=== PATIENT | female | born 1985 | race Caucasian/White ===

== ENCOUNTER 2016-12-14 08:02 | Day surgery (SDC) | payer BC ==
[~2016-12-14 08:02] MED LIST: Lactated Ringers 1,000 ML IV SCH
--- NOTE | 2016-12-14 08:34 | PCM.OPNOTE ---
- General Post-Op/Procedure Note Date of Surgery/Procedure: 12/14/16 Condition: Good Free Text/Narrative:: Diagnosis: Bilateral eustachian tube dysfunction Procedure: Bilateral Myringotomy with Tympanostomy tubes Surgeon : Citlaly Ingram MD Date of procedure: 12/14/2016 Indications : She presented to my office with ongoing symptoms of aural pressure , otalgia and imbalance especially with change of altitude. These were affecting her quality of life. A tympanogram was s/o eustachian tube dysfunction and after a detailed discussion of risks and benefits - she was consented for surgery today. Findings : Kyrie ME - dry Operation Details: An informed consent for the procedure was obtained. A time out was performed and the patient was brought back to the operating room and laid supine on the operating room table. Anesthesia was administered with a LMA. The left ear was addressed first. Cerumen was cleared from the external auditory canal. An anterior inferior myringotomy incision was made in the pars tensa. Findings are as described above. An Calderon tympanostomy tube was placed with an alligator forceps. Ciprodex ear drops were instilled. A cotton wool wall was placed in the misbah. The right ear was addressed. Cerumen was cleared from the external auditory canal. An anterior inferior myringotomy incision was made in the pars tensa. Findings are as described above. An Caledron tympanostomy tube was placed with an alligator forceps. Ciprodex ear drops were instilled. A cotton wool wall was placed in the misbah. Specimens: None IV fluids: 300 ml Blood products: nil Disposition: PACU for recovery Follow up: 1 week
--- NOTE | 2016-12-14 08:47 | PCM.PREANE ---
Preanesthetic Assessment - Anesthesia/Transfusion/Family Hx Anesthesia History: Prior Anesthesia Without Reaction Family History of Anesthesia Reaction: No Transfusion History: No Prior Transfusion(s) Intubation History: Unknown - Review of Systems General: No Symptoms Pulmonary: No Symptoms Cardiovascular: No Symptoms Gastrointestinal: No Symptoms Neurological: No Symptoms Other: Reports: None - Physical Assessment Height: 1.66 m Weight: 100.244 kg ASA Class: 2 Mental Status: Alert & Oriented x3 Airway Class: Mallampati = 2 Dentition: Reports: Normal Dentition, Implants (x1 upper left (back)) Thyro-Mental Finger Breadths: 3 Mouth Opening Finger Breadths: 2 (TMJ) ROM/Head Extension: Full Lungs: Clear to Auscultation, Normal Respiratory Effort Cardiovascular: Regular Rate, Regular Rhythm - Allergies Allergies/Adverse Reactions: Allergies Allergy/AdvReac Type Severity Reaction Status Date / Time prednisone Allergy Anaphylactic Verified 12/01/16 08:29 Shock - Blood Blood Available: No - Anesthesia Plan Pre-Op Medication Ordered: None - Acknowledgements Anesthesia Type Planned: General Anesthesia Pt an Appropriate Candidate for the Planned Anesthesia: Yes Alternatives and Risks of Anesthesia Discussed w Pt/Guardian: Yes Pt/Guardian Understands and Agrees with Anesthesia Plan: Yes PreAnesthesia Questionnaire HEENT History: Reports: Allergic Rhinitis Other HEENT History: eustachian tube dysfunction and imbalance, TMJ disorder Gastrointestinal History: Reports: GERD Genitourinary History: Reports: None DIRECTOR OF TECHNOLOGY History: Reports: Neurological History: Reports: Migraines Psychiatric History: Reports: Anxiety Endocrine/Metabolic History: Reports: Obesity/BMI 30+ Hematologic History: Reports: Anemia - Past Surgical History Head Surgeries/Procedures: Reports: None Female Surgical History: Reports: D&C - SUBSTANCE USE Smoking Status *Q: Current Some Day Smoker Recreational Drug Use History: No - HOME MEDS Home Medications: Home Meds Cetirizine [ZyrTEC] 10 mg PO DAILY PRN 12/01/16 [History] Fluticasone Propionate [Flonase Allergy Relief] 1 - 2 spray NASBOTH DAILY [History] - CURRENT (IN HOUSE) MEDS Current Meds: Current Medications Lactated Ringer's (Ringers, Lactated) 1,000 mls @ 125 mls/hr IV ASDIRECTED [facility]
[2016-12-14] MEDS ORDERED: EPINEPHrine 1 MG/ML SDV ONE (09:31)
[2016-12-14] MEDS ORDERED: Ciprofloxacin/Dexamethasone 0.3-0.1% Otic Susp 7.5 ML Bottle ONE (09:31)
[2016-12-14] MEDS ORDERED: Lidocaine 2% 5 ML SDV ONE (09:49)
[2016-12-14] MEDS ORDERED: Propofol 200 MG/20 ML SDV ONE (09:50)
[2016-12-14] MEDS ORDERED: Midazolam 1 MG/ML 2 ML SDV ONE (09:50)
[2016-12-14] MEDS ORDERED: fentaNYL 100 MCG/2 ML SDV ONE (09:50)
[2016-12-14] MEDS ORDERED: Ondansetron 4 MG/2 ML SDV ONE (09:50)
[2016-12-14] MEDS ORDERED: Ketorolac 30 MG/ML SDV ONE (09:50)
[2016-12-14] MEDS ORDERED: Acetaminophen 325 MG Tab PO PRN (10:47)
[2016-12-14] MEDS ORDERED: fentaNYL 100 MCG/2 ML SDV IVPUSH PRN (10:56)
--- NOTE | 2016-12-14 11:21 | PCM.POSTAN ---
POST ANESTHESIA ASSESSMENT - MENTAL STATUS Mental Status: Alert, Oriented - RESPIRATORY Respiratory Status: Respiratory Rate WNL, Airway Patent, O2 Saturation Stable - CARDIOVASCULAR CV Status: Pulse Rate WNL, Blood Pressure Stable - GASTROINTESTINAL GI Status: No Symptoms - PAIN Pain Score: 5 - POST OP HYDRATION Hydration Status: Adequate & Stable - OBSERVATIONS Free Text/Narrative:: no anesthesia problems
[2016-12-14 11:46] VITALS: BP 136/86
== END 2016-12-14 12:15 | disposition home or self-care (01) ==
LOC: MW.SDS 08:02
PROVIDERS: ATTEND Otolaryngology
DX: H69.83 Other specified disorders of Eustachian tube, bilateral (principal); M26.69 Other specified disorders of temporomandibular joint; F17.200 Nicotine dependence, unspecified, uncomplicated; Z88.8 Allergy status to other drugs, medicaments and biological substances; Z79.51 Long term (current) use of inhaled steroids; Z98.890 Other specified postprocedural states
CPT/HCPCS: 69436; A9270; J0171; J2250; J2405; J3010; 00170; J1885; J2704

== ENCOUNTER 2018-11-21 16:26 | Emergency (ER) | payer MEDICAID ==
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
[2018-11-21 17:52] LABS: BLOOD UREA NITROGEN,BUN 12 mg/dL (7.0-18.0); CARBON DIOXIDE,CO2 23.9 mmol/L (21.0-32.0); CHLORIDE,CL 105 mmol/L (98-107); GLUCOSE RANDOM 111 mg/dL (74-106); POTASSIUM,K 3.7 mmol/L (3.5-5.1); SODIUM,NA 139 mmol/L (136-145)
[2018-11-21 17:54] LABS: LIPASE 158 U/L (73-393)
[2018-11-21 18:05] LABS: ACETAMINOPHEN <2.0 ug/mL
--- NOTE | 2018-11-21 18:21 | CR ---
Indication: Confusion Technique: Chest 1 view Comparison: None Findings/Impression: Cardiovascular and mediastinum: Heart size and vasculature are normal in caliber and appearance. Mediastinum is within normal limits. Lungs and pleural space: Lungs are clear. No sign of infiltrate or mass. No sign of pleural effusion. No pneumothorax. Bones and soft tissues: No significant findings. Dictated by Gogo Hedrick MD @ Nov 21 2018 6:20PM Signed by Dr. Gogo Hedrick @ Nov 21 2018 6:20PM
--- NOTE | 2018-11-21 18:21 | CT ---
INDICATION: Confusion, foggy sensation, tingling in toes TECHNIQUE: CT head without contrast. COMPARISON: None FINDINGS: CSF spaces: Within normal limits for age. Brain parenchyma: The jane-white differentiation is normal. No sign of mass, hemorrhage, or midline shift. Skull base and calvarium: The visualized paranasal sinuses and mastoid air cells demonstrate no acute or significant findings. The visualized orbits are grossly unremarkable. No skull fractures. IMPRESSION: Unremarkable noncontrast head CT. Please note that all CT scans at this facility use dose modulation, iterative reconstruction, and/or weight-based dosing when appropriate to reduce radiation dose to as low as reasonably achievable. Dictated by Gogo Hedrick MD @ Nov 21 2018 6:16PM Signed by Dr. Gogo Hedrick @ Nov 21 2018 6:19PM
[2018-11-21 18:50] VITALS: BP 141/75; PULSE 78
== END 2018-11-21 18:50 | disposition home or self-care (01) ==
LOC: MW.ED 16:26
DX: R41.0 Disorientation, unspecified (principal); Z88.1 Allergy status to other antibiotic agents; Z88.8 Allergy status to other drugs, medicaments and biological substances
CPT/HCPCS: 36415; 70450; 70450-26; 71045; 71045-26; 80053; 80305-QW; 81003; 83690; 83735; 84443; 84484; 84703; 85025; 93005; 99284; 99284-25; G0480

== ENCOUNTER 2019-05-23 16:58 | Emergency (ER) | payer MEDICAID, OTHER ==
--- NOTE | 2019-05-23 17:09 | EDM.PDOC ---
ED HPI GENERAL MEDICAL PROBLEM - General Chief Complaint: Respiratory Problem Stated Complaint: COUGH,RESPIRATORY Time Seen by Provider: 05/23/19 17:00 Source of Information: Reports: Patient History Limitations: Reports: No Limitations - History of Present Illness INITIAL COMMENTS - FREE TEXT/NARRATIVE: HISTORY AND PHYSICAL: History of present illness: Patient is a 34-year-old female who presents to the emergency room with complaints of cough, body aches, sore throat and subjective fever. She states that initially her , then younger son had respiratory symptoms and states they were checked for flu and pneumonia - these were negative. Sunday she started to have more noticeable symptoms which prompted her to come to the ED. Has had some loose stools in the last 24 hours. Patient denies any headache, change in vision, syncope or near syncope. Denies any chest pain, back pain, neck pain or stiffness. Denies any abdominal pain, nausea, vomiting, constipation or dysuria. Denies any chance of . Patient has been eating and drinking appropriately. No recent travel, but states her travels and is around people who travel due to work. Patient is wearing mask and isolated in room #2; has her three children with her (whom appear healthy and active). Review of systems: As per history of present illness and below otherwise all systems reviewed and negative. Past medical history: As per history of present illness and as reviewed below otherwise noncontributory. Surgical history: As per history of present illness and as reviewed below otherwise noncontributory. Social history: See social history for further information Family history: As per history of present illness and as reviewed below otherwise noncontributory. Physical exam: General: Well developed and well-nourished 34-year-old female. Alert and oriented. Generally unwell appearing but nontoxic and in no acute distress. HEENT: Atraumatic, normocephalic, pupils equal and reactive bilaterally, negative for conjunctival pallor or scleral icterus, mucous membranes moist, TMs normal bilaterally, throat edematous without exudate or soft tissue swelling , neck supple, nontender, trachea midline. No drooling or trismus noted. No meningeal signs. No hot potato voice noted. Lungs: Slightly diminished with expiratory wheezing noted to the bilateral base , breath sounds equal bilaterally, chest nontender. Dry nonproductive cough noted. Heart: S1S2, regular rate and rhythm without overt murmur Abdomen: Soft, nondistended, nontender. Negative for masses or hepatosplenomegaly. Negative for costovertebral tenderness. Skin: Intact, warm, dry. No lesions or rashes noted. Extremities: Atraumatic, moves all extremities per self without difficulty or deficits, negative for cords or calf pain. Neurovascular unremarkable. Neuro: Awake, alert, oriented. Cranial nerves II through XII unremarkable. Cerebellum unremarkable. Motor and sensory unremarkable throughout. Exam nonfocal. Notes: Patient appears to have some type of viral illness. She is tested negative for influenza and strep screening. Her chest x-ray is unremarkable. She does have a low-grade temp, tachycardic and slightly diminished/expiratory wheezing noted to her lung posey. She states there was concern approximately a month ago of exposure to coronavirus. She states her travels for work and had been exposed to a man who was in [facility] and being tested for COVID-19. She believes that he was negative for this. Since that time she states her initially was ill, then her kids and now her. There are guidelines that are changing about testing for COVID-19; I talked with her about testing for this. She would like to move forward with testing. Patient declines wanting an IV and fluids at this time for her tachycardia. She states she would like to be discharged home as she is the main caregiver of 3 children that are here with her now. I did offer to prescribe her nebulizer treatment, she has machine at home. We did talk about self quarantine until she has results back. Encouraged her to drink plenty of fluids and supportive care measures were reviewed and discussed. Signs and symptoms that would prompt her to return to the emergency room were reviewed and discussed. Voices understanding and is agreeable to plan of care. Denies any further questions or concerns at this time. Diagnostics: Influenza, strep, chest x-ray Therapeutics: DuoNeb Prescription: Duo Bret (#1 box) Impression: Viral Upper Respiratory Illness Plan: 1. Standard contact precautions (covering mouth while coughing, avoid sharing drinking cups and eating utensils). Please make sure you're doing good handwashing as this is contagious. 2. We did swab for COVID-19. This swab is sent to [facility] for analysis. Please stay home until you hear results. The state will contact you with results. For further questions related to the COVID-19, the public can call the [facility] hotline at from 7am - 7pm Sunday - Sunday. 3. Supportive care measures such as Tylenol and/or ibuprofen for pain and fever management. Encourage small frequent sips of fluids to prevent dehydration. If your symptoms worsen; please return to the ED. 4. Follow-up with your fire investigator in the next 1-2 days. Return to the ED as needed and as discussed. Definitive disposition and diagnosis as appropriate pending reevaluation and review of above. throat Pain Score (Numeric/FACES): 5 body aches Pain Score (Numeric/FACES): 5 - Related Data Allergies Allergy/AdvReac Type Severity Reaction Status Date / Time doxycycline Allergy Stomach Verified 11/21/18 16:32 Upset prednisone Allergy Anaphylactic Verified 11/21/18 16:32 Shock Home Meds: Home Meds Albuterol/Ipratropium [DuoNeb 3.0-0.5 MG/3 ML] 3 ml INH Q4HR PRN #1 box [Rx] Past Medical History - Past Health History Medical/Surgical History: Denies Medical/Surgical History HEENT History: Reports: Allergic Rhinitis Other HEENT History: eustachian tube dysfunction and imbalance, TMJ disorder Cardiovascular History: Reports: None Respiratory History: Reports: None Gastrointestinal History: Reports: GERD Genitourinary History: Reports: None 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: Musculoskeletal History: Reports: None Neurological History: Reports: Migraines Psychiatric History: Reports: Anxiety Endocrine/Metabolic History: Reports: Obesity/BMI 30+ Hematologic History: Reports: Anemia Immunologic History: Reports: None Oncologic (Cancer) History: Reports: None Dermatologic History: Reports: None - Infectious Disease History Infectious Disease History: Reports: Herpes - Past Surgical History Head Surgeries/Procedures: Reports: None Female Surgical History: Reports: D&C Social & Family History - Family History Family Medical History: Noncontributory - Caffeine Use Caffeine Use: Reports: Coffee, Soda ED ROS GENERAL - Review of Systems Review Of Systems: Comprehensive ROS is negative, except as noted in HPI. ED EXAM, GENERAL - Physical Exam Exam: See Below (See dictation) Course - Vital Signs Last Recorded V/S: Last Vital Signs Temp 99.6 F 05/23/19 17:55 Pulse 111 H 05/23/19 17:55 Resp 19 05/23/19 17:55 BP 139/77 05/23/19 17:55 Pulse Ox 97 05/23/19 17:55 - Orders/Labs/Meds Orders: Active Orders 24 hr Category Date Time Status RT Aerosol Therapy [RC] ASDIRECTED Care 05/23/19 17:15 Active CORONAVIRUS (COVID-19) PCR [MREF] Stat Lab 05/23/19 18:36 Received CULTURE STREP A CONFIRMATION [RM] Stat Lab 05/23/19 17:15 Results STREP SCRN A RAPID W CULT CONF [RM] Stat Lab 05/23/19 17:15 Results Isolation [COMM] Routine Oth 05/23/19 17:11 Active Meds: Medications Discontinued Medications Generic Name Dose Route Start Last Admin Trade Name Freq PRN Reason Stop Dose Admin Albuterol/Ipratropium 3 ml 05/23/19 17:15 05/23/19 17:24 Duoneb 3.0-0.5 Mg/3 Ml NEB 05/23/19 17:16 3 ml ONETIME ONE Administration Departure - Departure Time of Disposition: 18:23 Disposition: Home, Self-Care 01 Clinical Impression: Viral URI - Discharge Information Prescriptions: Albuterol/Ipratropium [DuoNeb 3.0-0.5 MG/3 ML] 3 ml INH Q4HR PRN #1 box PRN Reason: Dyspnea Instructions: Upper Respiratory Infection, Adult, [id number] Referrals: Jing Paula MD [Primary Care Provider] - Forms: ED Department Discharge Additional Instructions: The following information is given to patients seen in the emergency department who are being discharged to home. This information is to outline your options for follow-up care. We provide all patients seen in our emergency department with a follow-up referral. The need for follow-up, as well as the timing and circumstances, are variable depending upon the specifics of your emergency department visit. If you don't have a primary care physician on staff, we will provide you with a referral. We always advise you to contact your personal physician following an emergency department visit to inform them of the circumstance of the visit and for follow-up with them and/or the need for any referrals to a consulting specialist. The emergency department will also refer you to a specialist when appropriate. This referral assures that you have the opportunity for follow-up care with a specialist. All of these measure are taken in an effort to provide you with optimal care, which includes your follow-up. Under all circumstances we always encourage you to contact your private physician who remains a resource for coordinating your care. When calling for follow-up care, please make the office aware that this follow-up is from your recent emergency room visit. If for any reason you are refused follow-up, please contact the [facility] Emergency Department at and asked to speak to the emergency department charge nurse. [facility] [address] [place] [address] [facility] [address] [place] [phone] 1. Standard contact precautions (covering mouth while coughing, avoid sharing drinking cups and eating utensils). Please make sure you're doing good handwashing as this is contagious. 2. We did swab for COVID-19. This swab is sent to the [facility] for analysis. Please stay home until you hear results. The [facility] will contact you with results. For further questions related to the COVID-19, the public can call the [facility] hotline at from 7am - 7pm Sunday - Sunday. 3. Supportive care measures such as Tylenol and/or ibuprofen for pain and fever management. Encourage small frequent sips of fluids to prevent dehydration. If your symptoms worsen; please return to the ED. 4. Follow-up with your fire investigator in the next 1-2 days. Return to the ED as needed and as discussed. Sepsis Event Note - Focused Exam Vital Signs: Vital Signs Temp Temp Pulse Resp BP Pulse Ox 05/23/19 17:55 99.6 F 111 H 19 139/77 97 05/23/19 17:04 96.5 F L 107 H 22 H 131/94 H 99 Date Exam was Performed: 05/23/19 Time Exam was Performed: 18:56 - My Orders Last 24 Hours: My Active Orders 05/23/19 17:11 Isolation [COMM] Routine 05/23/19 17:15 RT Aerosol Therapy [RC] ASDIRECTED CULTURE STREP A CONFIRMATION [RM] Stat STREP SCRN A RAPID W CULT CONF [RM] Stat 05/23/19 18:36 CORONAVIRUS (COVID-19) PCR [MREF] Stat - Assessment/Plan Last 24 Hours: My Active Orders 05/23/19 17:11 Isolation [COMM] Routine 05/23/19 17:15 RT Aerosol Therapy [RC] ASDIRECTED CULTURE STREP A CONFIRMATION [RM] Stat STREP SCRN A RAPID W CULT CONF [RM] Stat 05/23/19 18:36 CORONAVIRUS (COVID-19) PCR [MREF] Stat
[2019-05-23] MEDS ORDERED: Albuterol/Ipratropium 3.0-0.5 MG/3 ML Neb Soln NEB ONE (17:15)
--- NOTE | 2019-05-23 17:59 | CR ---
INDICATION: Shortness of breath, cough TECHNIQUE: Chest radiograph 2 views COMPARISON: None FINDINGS: Mediastinum: The mediastinum is normal in appearance. The heart silhouette is normal in size and morphology. Lung: Both lungs are unremarkable in appearance. No sign of pleural effusion seen. No pneumothorax is identified. Bone and Soft tissue: Unremarkable for age. IMPRESSION: 1. No acute cardiopulmonary disease is seen. Dictated by: Noé Kent MD @ 05/23/2019 17:56:40 (Electronically Signed)
[2019-05-23 19:04] VITALS: BP 114/60; PULSE 109
== END 2019-05-23 18:59 | disposition home or self-care (01) ==
LOC: MW.ED 16:58
DX: J06.9 Acute upper respiratory infection, unspecified (principal); Z88.2 Allergy status to sulfonamides; Z88.8 Allergy status to other drugs, medicaments and biological substances; E66.9 Obesity, unspecified; Z68.34 Body mass index [BMI] 34.0-34.9, adult
CPT/HCPCS: 71046; 71046-26; 87081; 87804; 87880-QW; 94640; 99283; 99284-25; J7620-GY; U0001; U0002

== ENCOUNTER 2019-11-24 15:49 | Emergency (ER) | payer MEDICAID, OTHER ==
--- NOTE | 2019-11-24 16:09 | EDM.PDOC ---
ED HPI GENERAL MEDICAL PROBLEM - General Chief Complaint: General Stated Complaint: COVID POSITIVE Time Seen by Provider: 11/24/19 15:56 Source of Information: Reports: Patient History Limitations: Reports: No Limitations - History of Present Illness INITIAL COMMENTS - FREE TEXT/NARRATIVE: 34F no relevant PMHx presents for CP, SOB, cough in setting of known COVID-19 infection. Patient was diagnosed with COVID-19 11 days ago. She has been symptomatic for about 14 days. Has been on tylenol and finished a course of azithromycin. Notes continued fatigue, cough, SOB. Notes coughing up pink/frothy sputum. Denies LE pain/swelling/redness. chest Pain Score (Numeric/FACES): 7 - Related Data Allergies Allergy/AdvReac Type Severity Reaction Status Date / Time doxycycline Allergy Stomach Verified 11/24/19 16:03 Upset prednisone Allergy Anaphylactic Verified 11/24/19 16:03 Shock Home Meds: Home Meds Albuterol/Ipratropium [DuoNeb 3.0-0.5 MG/3 ML] 3 ml INH Q4HR PRN #1 box 05/23/19 [Rx] Past Medical History - Past Health History Medical/Surgical History: Denies Medical/Surgical History HEENT History: Reports: Allergic Rhinitis Other HEENT History: eustachian tube dysfunction and imbalance, TMJ disorder Cardiovascular History: Reports: None Respiratory History: Reports: None Gastrointestinal History: Reports: GERD Genitourinary History: Reports: None 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: Musculoskeletal History: Reports: None Neurological History: Reports: Migraines Psychiatric History: Reports: Anxiety Endocrine/Metabolic History: Reports: Obesity/BMI 30+ Hematologic History: Reports: Anemia Immunologic History: Reports: None Oncologic (Cancer) History: Reports: None Dermatologic History: Reports: None - Infectious Disease History Infectious Disease History: Reports: Herpes - Past Surgical History Head Surgeries/Procedures: Reports: None Female Surgical History: Reports: D&C Social & Family History - Family History Family Medical History: Noncontributory - Tobacco Use Smoking Status *Q: Never Smoker - Caffeine Use Caffeine Use: Reports: Coffee, Soda - Recreational Drug Use Recreational Drug Use: No ED ROS GENERAL - Review of Systems Review Of Systems: Comprehensive ROS is negative, except as noted in HPI. ED EXAM, GENERAL - Physical Exam Exam: See Below Exam Limited By: No Limitations General Appearance: Alert, WD/WN, No Apparent Distress (f) Ears: Normal External Exam Nose: Normal Inspection Throat/Mouth: Normal Inspection, No Airway Compromise, Other (hoarse voice) Neck: Normal Inspection Respiratory/Chest: No Respiratory Distress, Lungs Clear, Normal Breath Sounds, No Accessory Muscle Use Cardiovascular: Normal Peripheral Pulses, No Edema, Tachycardia Extremities: Normal Inspection Neurological: Alert Psychiatric: Normal Affect, Normal Mood Skin Exam: Warm, Intact Course - Vital Signs Last Recorded V/S: Last Vital Signs Temp 95.8 F L 11/24/19 16:00 Pulse 102 H 11/24/19 16:00 Resp 20 11/24/19 16:00 BP 117/78 11/24/19 16:00 Pulse Ox 96 11/24/19 16:00 - Orders/Labs/Meds Orders: Active Orders 24 hr Category Date Time Status Sodium Chloride 0.9% [Saline Flush] Med 11/24/19 16:12 Active 10 ml FLUSH ASDIRECTED PRN Sodium Chloride 0.9% [Saline Flush] Med 11/24/19 16:12 Active 2.5 ml FLUSH ASDIRECTED PRN Saline Lock Insert [OM.PC] Stat Oth 11/24/19 16:12 Ordered Medication Orders Sodium Chloride (Saline Flush) 10 ml FLUSH ASDIRECTED PRN PRN Reason: Keep Vein Open Last Admin: 11/24/19 17:39 Dose: 10 ml Documented by: MARINE Sodium Chloride (Saline Flush) 2.5 ml FLUSH ASDIRECTED PRN PRN Reason: Keep Vein Open Last Admin: 11/24/19 17:39 Dose: 2.5 ml Documented by: MARINE Labs: Laboratory Tests 11/24/19 11/24/19 11/24/19 Range/Units 16:27 16:27 16:27 WBC 3.58 L (4.0-11.0) K/uL RBC 3.86 L (4.30-5.90) M/uL Hgb 11.8 L (12.0-16.0) g/dL Hct 35.1 L (36.0-46.0) % MCV 90.9 (80.0-98.0) fL MCH 30.6 (27.0-32.0) pg MCHC 33.6 (31.0-37.0) g/dL RDW Std Deviation 39.6 (28.0-62.0) fl RDW Coeff of Shilpa 12 (11.0-15.0) % Plt Count 107 L (150-400) K/uL MPV 11.70 (7.40-12.00) fL Neut % (Auto) 64.8 (48.0-80.0) % Lymph % (Auto) 22.1 (16.0-40.0) % Stearns % (Auto) 12.0 (0.0-15.0) % Eos % (Auto) 0.8 (0.0-7.0) % Baso % (Auto) 0.3 (0.0-1.5) % Neut # (Auto) 2.3 (1.4-5.7) K/uL Lymph # (Auto) 0.8 (0.6-2.4) K/uL Stearns # (Auto) 0.4 (0.0-0.8) K/uL Eos # (Auto) 0.0 (0.0-0.7) K/uL Baso # (Auto) 0.0 (0.0-0.1) K/uL Nucleated RBC % 0.0 /100WBC Nucleated RBCs # 0 K/uL D-Dimer, Quantitative 0.71 H (0.0-0.50) mg/L FEU Lactate 1.1 (0.20-2.00) mmol/L Sodium (136-145) mmol/L Potassium (3.5-5.1) mmol/L Chloride (98-107) mmol/L Carbon Dioxide (21.0-32.0) mmol/L BUN (7.0-18.0) mg/dL Creatinine (0.6-1.0) mg/dL Est Cr Clr Drug Dosing mL/min Estimated GFR (MDRD) ml/min Glucose (74-106) mg/dL Calcium (8.5-10.1) mg/dL Total Bilirubin (0.2-1.0) mg/dL AST (15-37) IU/L ALT (14-63) IU/L Alkaline Phosphatase (46-116) U/L Total Protein (6.4-8.2) g/dL Albumin (3.4-5.0) g/dL Globulin (2.6-4.0) g/dL Albumin/Globulin Ratio (0.9-1.6) 11/24/19 Range/Units 16:27 WBC (4.0-11.0) K/uL RBC (4.30-5.90) M/uL Hgb (12.0-16.0) g/dL Hct (36.0-46.0) % MCV (80.0-98.0) fL MCH (27.0-32.0) pg MCHC (31.0-37.0) g/dL RDW Std Deviation (28.0-62.0) fl RDW Coeff of Shilpa (11.0-15.0) % Plt Count (150-400) K/uL MPV (7.40-12.00) fL Neut % (Auto) (48.0-80.0) % Lymph % (Auto) (16.0-40.0) % Stearns % (Auto) (0.0-15.0) % Eos % (Auto) (0.0-7.0) % Baso % (Auto) (0.0-1.5) % Neut # (Auto) (1.4-5.7) K/uL Lymph # (Auto) (0.6-2.4) K/uL Stearns # (Auto) (0.0-0.8) K/uL Eos # (Auto) (0.0-0.7) K/uL Baso # (Auto) (0.0-0.1) K/uL Nucleated RBC % /100WBC Nucleated RBCs # K/uL D-Dimer, Quantitative (0.0-0.50) mg/L FEU Lactate (0.20-2.00) mmol/L Sodium 140 (136-145) mmol/L Potassium 3.2 L (3.5-5.1) mmol/L Chloride 104 (98-107) mmol/L Carbon Dioxide 25.6 (21.0-32.0) mmol/L BUN 6 L (7.0-18.0) mg/dL Creatinine 0.7 (0.6-1.0) mg/dL Est Cr Clr Drug Dosing 103.82 mL/min Estimated GFR (MDRD) > 60.0 ml/min Glucose 100 (74-106) mg/dL Calcium 8.2 L (8.5-10.1) mg/dL Total Bilirubin 0.5 (0.2-1.0) mg/dL AST 28 (15-37) IU/L ALT 28 (14-63) IU/L Alkaline Phosphatase 54 (46-116) U/L Total Protein 7.2 (6.4-8.2) g/dL Albumin 3.3 L (3.4-5.0) g/dL Globulin 3.9 (2.6-4.0) g/dL Albumin/Globulin Ratio 0.9 (0.9-1.6) Meds: Medications Generic Name Dose Route Start Last Admin Trade Name Freq PRN Reason Stop Dose Admin Sodium Chloride 10 ml 11/24/19 16:12 11/24/19 17:39 Saline Flush FLUSH 10 ml ASDIRECTED PRN Administration Keep Vein Open Sodium Chloride 2.5 ml 11/24/19 16:12 11/24/19 17:39 Saline Flush FLUSH 2.5 ml ASDIRECTED PRN Administration Keep Vein Open Discontinued Medications Generic Name Dose Route Start Last Admin Trade Name Freq PRN Reason Stop Dose Admin Acetaminophen 1,000 mg 11/24/19 16:12 11/24/19 17:00 Tylenol Extra Strength PO 11/24/19 16:13 1,000 mg ONETIME ONE Administration Dexamethasone 10 mg 11/24/19 16:14 11/24/19 17:00 Dexamethasone IVPUSH 11/24/19 16:15 10 mg ONETIME ONE Administration Sodium Chloride 1,000 mls @ 999 mls/hr 11/24/19 16:12 11/24/19 17:00 Normal Saline IV 11/24/19 17:12 999 mls/hr .Bolus ONE Administration Iopamidol 75 ml 11/24/19 17:58 11/24/19 18:00 Isovue-370 (76%) IVPUSH 11/24/19 17:59 75 ml ONETIME STA Administration Ketorolac Tromethamine 15 mg 11/24/19 16:13 11/24/19 17:00 Toradol IVPUSH 11/24/19 16:14 15 mg ONETIME ONE Administration - Re-Assessments/Exams Free Text/Narrative Re-Assessment/Exam: 11/24/19 16:20 Will get labs including D-dimer; will treat symptomatically IVFB/tylenol/toradol; will give dexamethasone for COVID-19 infection. 11/24/19 17:21 D-dimer elevated; will get CTA to r/o PE 11/24/19 18:26 CT negative; patient feeling much much better after decadron, fluid bolus, tylenol/toradol. Will d/c with strict return precautions. Never hypoxic. Patient understands and agrees with plan. Departure - Departure Time of Disposition: 18:27 Disposition: Home, Self-Care 01 Condition: Good Clinical Impression: COVID-19 - Discharge Information Instructions: COVID-19 Frequently Asked Questions, COVID-19 Referrals: Jing Paula MD [Primary Care Provider] - Forms: ED Department Discharge Additional Instructions: The following information is given to patients seen in the emergency department who are being discharged to home. This information is to outline your options for follow-up care. We provide all patients seen in our emergency department with a follow-up referral. The need for follow-up, as well as the timing and circumstances, are variable depending upon the specifics of your emergency department visit. If you don't have a primary care physician on staff, we will provide you with a referral. We always advise you to contact your personal physician following an emergency department visit to inform them of the circumstance of the visit and for follow-up with them and/or the need for any referrals to a consulting specialist. The emergency department will also refer you to a specialist when appropriate. This referral assures that you have the opportunity for follow-up care with a specialist. All of these measure are taken in an effort to provide you with optimal care, which includes your follow-up. Under all circumstances we always encourage you to contact your private physician who remains a resource for coordinating your care. When calling for follow-up care, please make the office aware that this follow-up is from your r ecent emergency room visit. If for any reason you are refused follow-up, please contact the [facility] Emergency Department at and asked to speak to the emergency department charge nurse. Please follow up with your primary care physician. If you do not have a primary care physician, see below: [facility] [address] [place] [id number] [facility] [address] [place] [address] Sepsis Event Note (ED) - Evaluation Sepsis Screening Result: No Definite Risk - Focused Exam Vital Signs: Vital Signs Temp Pulse Resp BP Pulse Ox 11/24/19 16:00 95.8 F L 102 H 20 117/78 96 - My Orders Last 24 Hours: My Active Orders 11/24/19 16:12 Sodium Chloride 0.9% [Saline Flush] 10 ml FLUSH ASDIRECTED PRN Sodium Chloride 0.9% [Saline Flush] 2.5 ml FLUSH ASDIRECTED PRN Saline Lock Insert [OM.PC] Stat - Assessment/Plan Last 24 Hours: My Active Orders 11/24/19 16:12 Sodium Chloride 0.9% [Saline Flush] 10 ml FLUSH ASDIRECTED PRN Sodium Chloride 0.9% [Saline Flush] 2.5 ml FLUSH ASDIRECTED PRN Saline Lock Insert [OM.PC] Stat
[2019-11-24] MEDS ORDERED: Sodium Chloride 0.9% 2.5 ML Syringe FLUSH PRN (16:12)
[2019-11-24] MEDS ORDERED: Sodium Chloride 0.9% 1,000 ML IV ONE (16:12)
[2019-11-24] MEDS ORDERED: Acetaminophen 500 MG Tab PO ONE (16:12)
[2019-11-24] MEDS ORDERED: Sodium Chloride 0.9% 10 ML Syringe FLUSH PRN (16:12)
[2019-11-24] MEDS ORDERED: Ketorolac 15 MG/ML SDV IVPUSH ONE (16:13)
[2019-11-24] MEDS ORDERED: Dexamethasone 10 MG/ML SDV IVPUSH ONE (16:14)
--- NOTE | 2019-11-24 16:54 | CR ---
Chest: Frontal view of the chest was obtained. Comparison: Prior chest x-ray of 11/14/19. Central lung markings are slightly increased. Mild areas of scattered parenchymal density is seen. Findings most likely represent mild viral pneumonia. Lungs otherwise are clear. Heart size and mediastinum are normal. Bony structures are grossly intact. Impression: 1. Slight increased central lung markings and mild areas of scattered parenchymal density. As mentioned above, this is most likely due to mild viral pneumonia. 2. Portable chest x-ray is otherwise unremarkable. Diagnostic code #3 This report was dictated in MDT
[2019-11-24 17:00] LABS: BLOOD UREA NITROGEN,BUN 6 mg/dL (7.0-18.0); CARBON DIOXIDE,CO2 25.6 mmol/L (21.0-32.0); CHLORIDE,CL 104 mmol/L (98-107); GLUCOSE RANDOM 100 mg/dL (74-106); POTASSIUM,K 3.2 mmol/L (3.5-5.1); SODIUM,NA 140 mmol/L (136-145)
[2019-11-24] MEDS ORDERED: Iopamidol 755 Mg/ML 100 ML Bottle IVPUSH STA (17:58)
--- NOTE | 2019-11-24 18:14 | CT ---
CT chest Technique: Multiple axial sections through the chest were obtained. Intravenous contrast was utilized. Study performed as a pulmonary angiogram protocol. Comparison: Prior chest x-ray performed earlier on the same day (4:26 PM). Findings: Pulmonary arteries are moderately well opacified. No filling defects are seen to indicate pulmonary embolism. Aorta shows no aneurysm or dissection. Mediastinum and hilar regions are unremarkable. Visualized upper abdominal structures shows no discrete abnormality. Patchy areas of increased density are seen within both sides of the chest. No pleural effusions are noted. Bone window settings were reviewed which shows no acute osseous finding. Impression: 1. Patchy areas of increased density on both sides of the chest having the appearance of viral pneumonia. 2. No findings pulmonary embolism. No additional abnormality is appreciated on CT study of the chest. Diagnostic code #3 This report was dictated in MDT
[2019-11-24 18:42] VITALS: BP 111/68; PULSE 97
== END 2019-11-24 18:42 | disposition home or self-care (01) ==
LOC: MW.ED 15:49
DX: U07.1 COVID-19 (principal); E66.9 Obesity, unspecified; R00.0 Tachycardia, unspecified; Z88.8 Allergy status to other drugs, medicaments and biological substances; Z68.32 Body mass index [BMI] 32.0-32.9, adult
CPT/HCPCS: 36415; 71045; 71275; 80053; 83605; 85025; 85379; 96361; 96374; 96375; 99285; A9270; J1100; J1885; J7030; Q9967; 99282

== ENCOUNTER 2021-08-19 16:30 | Inpatient (IN) | payer MEDICAID ==
[2021-08-19] MEDS ORDERED: ePHEDrine 50 MG/ML SDV IVPUSH PRN ×2 (17:02)
[2021-08-19] MEDS ORDERED: Ropivacaine in NACL,ISO-OSM/PF 800 MG in Premix Bag 1 BAG EPIDUR SCH ×2 (17:15)
[2021-08-19] MEDS ORDERED: Ropivacaine/PF 400 MG/200 ML PCA EPIDUR SCH (17:15)
[2021-08-19] MEDS ORDERED: Tranexamic Acid 1,000 MG in Sodium Chloride 0.9% 100 ML IV PRN (17:16)
[2021-08-19] MEDS ORDERED: Misoprostol 200 MCG Tab PO PRN (17:16)
[2021-08-19] MEDS ORDERED: Methylergonovine 0.2 MG/1 ML Amp IM PRN (17:16)
[2021-08-19] MEDS ORDERED: Sodium Chloride 0.9% 2.5 ML Syringe FLUSH PRN (17:16)
[2021-08-19] MEDS ORDERED: Carboprost Tromethamine 250 MCG/1 ML Amp IM PRN (17:16)
[2021-08-19] MEDS ORDERED: Butorphanol 1 MG/ML SDV IVPUSH PRN (17:16)
[2021-08-19] MEDS ORDERED: Ondansetron 4 MG/2 ML SDV IVPUSH PRN (17:16)
[2021-08-19] MEDS ORDERED: Lidocaine 1% 50 ML MDV INJECT PRN (17:16)
[2021-08-19] MEDS ORDERED: Water For Irrigation,Sterile 1,000 ML Container IRR PRN (17:16)
[2021-08-19] MEDS ORDERED: Sodium Chloride 0.9% 20 ML SDV IV PRN (17:16)
[2021-08-19] MEDS ORDERED: Sodium Chloride 0.9% 10 ML Syringe FLUSH PRN (17:16)
[2021-08-19] MEDS ORDERED: Terbutaline 1 MG/ML SDV SUBCUT PRN (17:20)
[2021-08-19] MEDS ORDERED: Ampicillin 2 GM in Sodium Chloride 0.9% 100 ML IV ONE (17:30)
[2021-08-19] MEDS ORDERED: Oxytocin/0.9 % Sodium Chloride 30 UNIT/500 ML BAG IV SCH ×2 (17:30)
[2021-08-19] MEDS: Lactated Ringers 1,000 ML IV SCH (17:43)
[2021-08-19] MEDS: Ampicillin 1 GM in Sodium Chloride 0.9% 50 ML IV SCH (22:44)
[2021-08-19] MEDS: Fluticasone NASAL Spray 16 GM Bottle NASBOTH SCH (23:09)
[2021-08-20] MEDS: Ampicillin 1 GM in Sodium Chloride 0.9% 50 ML IV SCH ×5 (03:32→17:12)
[2021-08-20] MEDS ORDERED: Misoprostol 50 MCG (1/2 of 100 MCG) Tab PO ONE (05:00)
[2021-08-20] MEDS: Fluticasone NASAL Spray 16 GM Bottle NASBOTH SCH (09:22)
[2021-08-20] MEDS: Lactated Ringers 1,000 ML IV SCH ×3 (09:32→16:17)
[2021-08-20] MEDS ORDERED: fentaNYL 100 MCG/2 ML SDV ONE (15:54)
[2021-08-21] MEDS ORDERED: Witch Hazel Medicated Pads 40/Jar TOP PRN (02:53)
[2021-08-21] MEDS ORDERED: Bisacodyl 10 MG Supp RECTAL PRN (02:53)
[2021-08-21] MEDS ORDERED: Lanolin 100% Cream 7 GM Tube TOP PRN (02:53)
[2021-08-21] MEDS ORDERED: Ibuprofen 400 MG Tab PO PRN (02:53)
[2021-08-21] MEDS ORDERED: Benzocaine/Menthol 20%-0.5% Spray 78 GM Cannister TOP PRN (02:53)
[2021-08-21] MEDS ORDERED: Acetaminophen 500 MG Tab PO PRN (02:53)
[2021-08-21] MEDS: Ibuprofen 800 MG Tab PO PRN ×3 (04:06→21:16)
[2021-08-21] MEDS: Acetaminophen 500 MG Tab PO PRN ×2 (07:59→18:19)
[2021-08-21] MEDS: Docusate Sodium 100 MG Cap PO PRN ×2 (08:00→21:16)
[2021-08-21] MEDS: Fluticasone NASAL Spray 16 GM Bottle NASBOTH SCH (09:13)
[2021-08-22] MEDS: Acetaminophen 500 MG Tab PO PRN (00:41)
[2021-08-22 03:59] VITALS: BP 141/94; PULSE 75
[2021-08-22] MEDS: Ibuprofen 800 MG Tab PO PRN ×2 (08:20→14:17)
[2021-08-22] MEDS: Docusate Sodium 100 MG Cap PO PRN (08:20)
== END 2021-08-22 14:30 | disposition home or self-care (01) | DRG 806 ==
LOC: MW.OB 16:30 → MW.OBCHECK 16:30 → MW.OB 17:16 → OBSVTOIN 08-20 20:16 → MW.OB 08-21 00:22
PROVIDERS: ADMIT Obstetrics & Gynecology; ATTEND Obstetrics & Gynecology
PROC: 10907ZC Drainage of Amniotic Fluid, Therapeutic from Products of Conception, Via Natural or Artificial Opening (ICD-10-PCS; principal; 2021-08-20)
PROC: 10E0XZZ Delivery of Products of Conception, External Approach (ICD-10-PCS; 2021-08-20)
PROC: 0UQMXZZ Repair Vulva, External Approach (ICD-10-PCS; 2021-08-20)
PROC: 3E0R3BZ Introduction of Anesthetic Agent into Spinal Canal, Percutaneous Approach (ICD-10-PCS; 2021-08-20)
PROC: 00HU33Z Insertion of Infusion Device into Spinal Canal, Percutaneous Approach (ICD-10-PCS; 2021-08-20)
DX: O13.4 Gestational [pregnancy-induced] hypertension without significant proteinuria, complicating childbirth (principal); O98.32 Other infections with a predominantly sexual mode of transmission complicating childbirth; Z37.0 Single live birth; Z3A.39 39 weeks gestation of pregnancy; O70.0 First degree perineal laceration during delivery; Z20.822 Contact with and (suspected) exposure to COVID-19; O99.013 Anemia complicating pregnancy, third trimester; D64.9 Anemia, unspecified; Z88.8 Allergy status to other drugs, medicaments and biological substances; A60.09 Herpesviral infection of other urogenital tract
CPT/HCPCS: 36415; 51702; 59025; 82803; 85014; 85018; 85027; 86592; 86850; 86900; 86901; A9270-GY; J0290; J2590; J3010; J7120; U0002